=== PATIENT | male | born 1950 | race African-American/Black ===

== ENCOUNTER 2017-02-28 09:49 | Inpatient (IN) | payer OTHER ==
[~2017-02-28] VITALS: Ht 177.8 cm; Wt 94.1 kg
--- NOTE | ~2017-02-28 | HC ---
[facility] [place] [address] CONSULTATION Name: SASHA STEVENS Room #: 212-P [facility] IN M.R.#: [id number] Admission: 02/28/17 Attend Phys: Daniel Veliz DO Discharge: Date of : 48 Report #: [id number] THIS REPORT FOR: //name// CC: Daniel Veliz DO Gillian Torres MD DATE OF SERVICE: 03/01/2017 PATIENT OF: Dr. Gillian Torres and Dr. Daniel Veliz. INDICATION FOR CONSULTATION: The patient has had recurrent bouts of mid epigastric nonradiating pain associated with nausea and vomiting that are abrupt in onset and occur about every 6 months, this is his third episode. The pain, nausea, and vomiting have completely resolved now 24 hours since they started and that is the way the previous episodes have been as well. He has no residual tenderness, nausea, or vomiting. PAST MEDICAL HISTORY: Significant for diabetes mellitus, hypertension, hyperlipidemia, he has arthritis in his left hand, and he has had a history of gout. PAST SURGICAL HISTORY: Significant for repair of a dislocated patella on his right side and he had a surgical repair of a fractured left ankle. ALLERGIES: IBUPROFEN, which causes swelling. He also denies any other allergies. MEDICATIONS AT HOME: Included the following: Acetaminophen, atorvastatin, carvedilol, Remeron, Flomax, Ultram, trazodone, and he was taking 81 mg of aspirin, but had recurrent epistaxis episodes when he blew his nose every morning when he got up and so he stopped taking the aspirin because of that. SOCIAL HISTORY: He does smoke marijuana one a daily basis. He drinks occasional beer, but it does not sound like he drinks alcoholic extensively. He does not smoke cigarettes. He has never had a blood transfusion. FAMILY HISTORY: Significant for colon polyps in a sister, but there is no history of colon cancer, Crohn's disease, or ulcerative colitis in his family. REVIEW OF SYSTEMS: He denies any dysphagia, odynophagia, gastroesophageal reflux, hiatal hernia, or peptic ulcer disease. His weight is stable. His appetite is good. He denies any diarrhea or constipation. Denies any hematemesis, hematochezia, or melena. He has some lower abdominal pain sometimes that is resolved by the passage of stools and flatus. He has no [facility] [address] [place] [address] CONSULTATION Name: SASHA STEVENS Room #: 212-P [facility] IN ..#: [id number] Admission: 02/28/17 Attend Phys: Daniel Veliz DO Discharge: Date of : 48 Report #: [id number] history of jaundice, hepatitis, cholelithiasis, cholecystitis, or pancreatitis. He has regular colonoscopies every 5 years because of family history of colon polyps in his sister. His last colonoscopy was less than a year ago and it was normal. He has never had colon polyps. PHYSICAL EXAMINATION: GENERAL: Reveals a well-developed, well-nourished 66-year-old -[place] male, in no apparent distress at the time of the examination, he is awake, alert, oriented x4, and cooperative and very pleasant to converse with. HEENT: He is normocephalic and atraumatic and anicteric. HEART: Rate and rhythm are regular with a normal S1 and S2. He does have a grade 2/6 systolic murmur heard best in the left precordial area. LUNGS: Clear to auscultation bilaterally. ABDOMEN: Soft, nontender. Bowel sounds are present in all 4 quadrants. There is no palpable organomegaly or mass. There is no rebound or guarding. EXTREMITIES: Warm and dry. There is a healed scar in his left lateral ankle. There is no peripheral cyanosis, clubbing, or edema. NEUROLOGIC: He appears grossly intact without lateralizing signs, but I did not test him extensively neurologically. IMPRESSION: 1. Recurring bouts of mid epigastric pain, nonradiating with nausea and vomiting, did occur every 6 months, the etiology is uncertain, this pain has already resolved, it usually only lasts about 24 hours. His liver enzymes and lipase have remained normal. 2. Hypertension, poorly controlled. 3. Borderline diabetic. 4. Hyperlipidemia. 5. Arthritis, left hand. 6. History of gout. 7. Hypokalemia. Potassium was 2.9 and with is 3.4 now. RECOMMENDATION: My recommendations are as follows: 1. We will try to get an ultrasound of the abdomen today as this may be a gallbladder issue. 2. EGD will be performed later today to make certain that there is no evidence of gastritis or peptic ulcer disease. 3. The patient could probably go home today after the tests if they are all normal as his pain is resolved and if there are no other pending issues. We would continue PPIs for now. Consider a gastric emptying study as an outpatient. [facility] [address] [place] [address] CONSULTATION Name: SASHA STEVENS Room #: 212-P [facility] IN M.R.#: [id number] Admission: 02/28/17 Attend Phys: Daniel Veliz DO Discharge: Date of : 48 Report #: [id number] Thank you very much once again for allowing me to participate in his care, Dr. Veliz and Dr. Torres. <ELECTRONICALLY SIGNED> By: Dora Gan DO 03/01/17 1433 1023 1248 Dora Gan DO /nt
--- NOTE | ~2017-02-28 | HC ---
[facility] [place] [address] CONSULTATION Name: SASHA STEVENS Room #: 212-P [facility] IN ..#: [id number] Admission: 02/28/17 Attend Phys: Daniel Veliz DO Discharge: Date of : 48 Report #: [id number] THIS REPORT FOR: //name// CC: Daniel Torres DATE OF SERVICE: 02/28/2017 DATE OF SERVICE: 02/28/2017. REASON FOR CONSULTATION: Hypertension. HISTORY OF PRESENT ILLNESS: This is a very pleasant 66-year-old gentleman who presented to the emergency room with nausea and vomiting. He does have a history of hypertension and states that he had not taken his medications in the morning of admission. On questioning though, his blood pressures when actually taking his medicines are still 150-160 systolic. He states this morning he awoke and began nauseated. He did not check his blood pressure at that time, but has been unable to stop this protracted emesis. He denies any chest pain, pressure, tightness or heaviness. He did have a small-bowel obstruction in the past which was completely different than these symptoms. No dependent or nondependent edema. No palpitations. PAST MEDICAL HISTORY: 1. Hypertension. 2. Diabetes mellitus. 3. Prior bowel obstruction. ALLERGIES: IBUPROFEN. MEDICATIONS AT HOME: Flomax, Ultram, Tylenol, Zocor, Coreg 25 mg daily. PAST SURGICAL HISTORY: Significant for: 1. Ankle surgery. 2. Knee surgery. 3. Removal of a right inner thigh mass. SOCIAL HISTORY: The patient smokes marijuana twice a day and uses alcohol daily. Does not follow particular exercise regimen or follow any dietary restriction. DIAGNOSTIC AND LABORATORY DATA: ELECTROCARDIOGRAM: Normal sinus rhythm, nonspecific ST-T wave changes. LABORATORY: Laboratories demonstrate potassium of 3.5, BUN and creatinine of 9 and 0.9. H and H are 18.5 and 53.8, with a platelet count of 126,000. His drug screen is positive for THC. [address] [address] CONSULTATION Name: SASHA STEVENS Chapo Room #: [facility] IN ..#: [id number] Admission: 02/28/17 Attend Phys: Daniel Veliz DO Discharge: Date of : 48 Report #: [id number] RADIOLOGIC: Chest x-ray failed to demonstrate any acute cardiovascular issues. REVIEW OF SYSTEMS: Except for symptoms previously mentioned and those commensurate with comorbid states, the 10 point review of systems is negative. PHYSICAL EXAMINATION: GENERAL: Well-developed, well-nourished -[place] male resting comfortably in no acute distress. HEENT: Normocephalic, atraumatic. Pupils are equal, round, reactive to light and accommodation. Extraocular muscles are intact. Sclerae and conjunctivae are anicteric. NECK: JVD is normal. Carotid upstrokes are bilaterally symmetrical. No bruits are heard. No thyromegaly. No lymphadenopathy. LUNGS: Clear to auscultation. No wheezes, rhonchi or crackles. No CVA tenderness. CARDIAC: Demonstrates a regular rhythm. Normal first and second heart sounds. No ventricular or atrial gallops, no rubs noted. No murmurs. No lifts or heaves, PMI normal. ABDOMEN: Soft, nontender, nondistended. Normal bowel sounds. EXTREMITIES: Without cyanosis, clubbing or edema. Distal pulses are intact. DTR symmetrical. NEUROLOGIC: Cranial nerves 2-12 are grossly normal and symmetrical. PSYCHIATRIC: Alert, oriented with normal affect. SKIN: Warm and dry. IMPRESSION: 1. Hypertension, not well controlled. The patient's Coreg is only once a day, it is a twice-a-day drug, we need to increase it to b.i.d. We will continue to monitor his blood pressures carefully. We will see if we can get him to the target. I did discuss nonpharmacologic treatment of hypertension. He does voice understanding, but we will re-emphasize this on a daily basis. 2. Nausea and vomiting, uncertain etiology, doubt that it is ischemic in origin. We will defer to primary care. 3. Diabetes mellitus, seems to be monitored at home, but he is not on any medications for this. We need to can make sure that the diabetes is not affecting his nausea, vomiting, etc. We will defer that to primary care though. <ELECTRONICALLY SIGNED> By: Naveen Booth MD 03/01/17 2219 [id number] [id number] Naveen Booth MD /nt
--- NOTE | ~2017-02-28 | S ---
[facility] [place] [address] SURGICAL PATH RPT PROCEDURE Name: ASTON STEVENS Room #: 212-P [facility] IN M.R.#: [id number] Admission: 02/28/17 Date of : 48 Discharge: 03/03/17 Report #: [id number] Path Case #: [id number] PATHOLOGY REPORT COLLECTION DATE: 03/01/2017 RECEIVED DATE: 03/01/2017 SUBMITTING PHYS: Dr. Dora Gan OTHER PHYS: Dr. Gillian Veliz SPECIMEN(S) RECEIVED: A.Random gastric bx B.Bx of antral erosions * * * * * * * * * * * * FINAL DIAGNOSIS: A. "Random gastric BX", biopsy: - Gastric mucosa with mild reactive changes, mild chronic inflammation and focal intestinal type epithelium; no dysplasia seen (see comment). B. "BX of antral erosions", biopsy: - Gastric antral-type mucosa with mild reactive/regenerative changes, mild chronic inflammation and focal intestinal type epithelium; no dysplasia seen (see comment). COMMENT: Within both specimens A and B, the focal intestinal type epithelium may be focal intestinal metaplasia in the setting of mild chronic gastritis or a transition to small bowel/duodenal mucosa. No dysplasia is seen. Clinical and endoscopic correlation is required. Properly controlled immunohistochemical stains are performed. H. pylori (block A1) - Negative for organisms H. pylori (block B1) - Negative for organisms PATHOLOGIST: Manju Welch M.D. REPORT ELECTRONICALLY SIGNED BY: Manju Welch M.D. DATE/TIME: 03/05/2017 23:07 * * * * * * * * * * * * GROSS PATHOLOGY: A. Received in formalin labeled "A[place], random gastric BX," are 3 segments of aburto soft tissue measuring 1.9 x 0.2 x 0.2 cm in aggregate dimensions and ranging from 0.5 to 0.9 cm in maximum dimension. The specimen is submitted entirely in cassette A1. B. Received in formalin labeled "[place] Stevens, gastric antrum erosions BX," are 3 segments of aburto soft tissue measuring 1.6 x 0.[address] [address] SURGICAL PATH RPT PROCEDURE Name: ASTON STEVENS Room #: 212-P [facility] IN .R.#: [id number] Admission: 02/28/17 Date of : 48 Discharge: 03/03/17 Report #: [id number] Path Case #: [id number] 0.2 cm in aggregate dimensions and ranging from 0.3 to 0.6 cm in maximum dimension. The specimen is submitted entirely in cassette B1. (ROBI; 03/02/2017) CLINICAL HISTORY: Nausea/vomiting, epigastric pain INITIAL CPT CODE(S): A; 54660, 50449 B; 76422, 77942 Professional services performed by [facility] at [address], [place] [address] Technical services performed by [facility] at [address] [place] [address], [address], [place] [address]. [facility] [address] [place] [address] PHONE: [phone] DIRECTOR: Bassam Mora M.D. * * * END OF REPORT * * *
--- NOTE | ~2017-02-28 | EKG ---
[address] [place] [place] [address] ELECTROCARDIOGRAM REPORT Name: SASHA STEVENS Room #: 212-P [facility] IN M.R.#: [id number] Admission: 02/28/17 Attend Phys: Daniel Veliz DO Discharge: Date of : 48 Report #: [id number] THIS REPORT FOR: //name// [facility] ED Test Date: 2017-02-28 Test Time: 10:18:11 Pat Name: SASHA STEVENS Department: Room: [facility] Gender: M [employer] Manager: MZOOK : 1950 Requested By: Katie Cochran Order Number: [id number] MD: Ghanshyam Kellogg Measurements Intervals [place] Rate: 45 P: 27 MS: 191 QRS: 10 QRSD: 97 T: 21 QT: 469 QTc: 406 Interpretive Statements Sinus bradycardia Probable left ventricular hypertrophy Compared to ECG 09/01/2015 14:35:03 No significant change was found Electronically Signed On 03-01-2017 7:14:31 CDT by Ghanshyam Kellogg [email or web address] <ELECTRONICALLY SIGNED> By: Ghanshyam Kellogg MD, [facility] 03/01/17 0714 1018 1018 Ghanshyam Kellogg MD, [facility] /EPI
--- NOTE | ~2017-02-28 | P ---
[facility] [place] [address] PROCEDURE REPORT Name: SASHA STEVENS Room #: 212-P ADM IN M.R.#: [id number] Admission: 02/28/17 Attend Phys: Daniel Veliz DO Discharge: Date of : 48 Report #: [id number] THIS REPORT FOR: //name// CC: ANNMARIE Link DATE OF SERVICE: 03/01/[address] Daniel Veliz and Dr. Annmarie Torres PROCEDURE: EGD with biopsies. INDICATION FOR PROCEDURE: This patient has had 3 bouts of severe epigastric pain, nausea and vomiting, spread out over about a year and a half to 2 years. It is abrupt in onset and the etiology is never clear. Once again yesterday he had one of these episodes. Today all the symptoms have resolved completely. He is nontender to palpation. EGD is being performed to see if there are any changes in his stomach that might tell us what is causing these episodes. Informed consent for this procedure was obtained prior to the administration of any medication. The risks of the procedure which include bleeding, perforation, infection, complications of sedation and the possibility I could miss something have been explained to the patient and he has indicated his consent by signing. The [email or web address] upper videoscope was introduced through the upper esophageal sphincter and advanced under direct visualization to the descending duodenum. Findings are noted on withdrawal of the scope. The duodenal mucosa appears normal throughout its entirety. Pylorus, normal mucosa. Antrum; in the antrum, there are several erosions that are linear both in parallel to long axis of the stomach and perpendicular to the long axis of the stomach. These are all located pretty much in the antrum. Multiple biopsies were obtained from these erosions to evaluate them further. The overall antrum is also erythematous. Body, erythematous mucosa and is also nodular. Cardia and fundus, erythematous mucosa and slightly nodular. Multiple biopsies were obtained randomly throughout the stomach to evaluate its odd appearance. Good hemostasis was noted after all biopsies. Retroflex view did not reveal any hiatal hernia. The scope was withdrawn to the esophagus. The Z-line is appropriately located at the top the gastric folds and appears normal. The esophageal mucosa appears normal throughout its entirety. The scope was withdrawn. The patient went to the recovery area in stable condition. He tolerated the procedure well. IMPRESSION: Diffuse erosive gastritis primarily in the antrum, but also nodular gastritis of the proximal stomach, multiple biopsies are pending. [address] [address] PROCEDURE REPORT Name: SASHA STEVENS Room #: 212-P [facility] IN ..#: [id number] Admission: 02/28/17 Attend Phys: Daniel Veliz DO Discharge: Date of : 48 Report #: [id number] RECOMMENDATIONS: To await the biopsy results and switch him to proton pump inhibitors. We will start him on a clear liquid diet to advanced as tolerated and will await the abdominal ultrasound to make sure his gallbladder is not playing a part of this pain scenario. Thank you very much once again for allowing me to participate in his care, Dr. Veliz and Dr. Torres. <ELECTRONICALLY SIGNED> By: Dora Gan DO 03/01/172044 1222 25 Dora Gan DO /nt
[~2017-02-28 09:49] MED LIST: AVANDAMET 2 MG1 EAC1 PO; BYETTA PEN 11 PENINJ SC; CARVEDILOL25 MG PO; CIPROFLOXACIN500 M1 PO; DIOVAN320 MG PO; FLAGYL500 MG PO; FLOMAX0.4 MG PO; LISINOPRIL; LORTAB 5 MG/5001 TA1 PO; PHENERGAN 25 MG25 M1 PO; PREDNISONE 20 M20 MG PO; SIMVASTATIN40 MG PO; TRAMADOL 50 MG50 MG PO; TYLENOL325 MG PO; ULORIC80 MG PO
[2017-02-28 09:52] VITALS: BP 147/116
[2017-02-28 10:19] LABS: ABSOLUTE NEUTROPHILS 7.7 thou/uL (1.4-8.2); BASOPHILS 0.3 % (0.0-2.0); EOSINOPHILS 0.3 % (0.0-3.0); HEMATOCRIT 53.8 % (42.0-52.0); HEMOGLOBIN 18.5 gm/dL (14.0-18.0); LYMPHOCYTES 13.3 % (24.0-44.0); MCH 32.1 pg (26.0-34.0); MCHC 34.3 g/dL (28.0-37.0); MCV 93.4 fL (80.0-100.0); MONOCYTES 4.1 % (1.0-8.0); PLATELET COUNT 146 thou/uL (150-400); RBC 5.76 mil/uL (4.50-6.00); RDW 14.1 % (10.5-14.5); WBC 9.4 thou/uL (4.0-11.0)
[2017-02-28 10:25] LABS: MANUAL DIFF NO
[2017-02-28 10:28] LABS: ANION GAP 11 mmol/L (7-16); BUN 9 mg/dL (7-18); CALCIUM 9.6 mg/dL (8.5-10.1); CHLORIDE 106 mmol/L (98-107); CO2 28 mmol/L (21-32); CREATININE 0.9 mg/dL (0.7-1.3); GLUCOSE 168 mg/dL (74-106); POTASSIUM 3.5 mmol/L (3.5-5.1); SODIUM 145 mmol/L (136-145)
[2017-02-28 10:40] LABS: ALBUMIN 4.4 g/dL (3.4-5.0); ALKALINE PHOSPHATASE 94 U/L (46-116); SGOT 22 U/L (15-37); SGPT 30 U/L (30-65); TOTAL BILIRUBIN 0.8 mg/dL (<0.1-1.0); TOTAL PROTEIN 8.9 g/dL (6.4-8.2); TROPONIN-I < 0.04 ng/mL (<0.04-0.07)
[2017-02-28 11:51] LABS: URINE BILIRUBIN NEGATIVE (Negative); URINE BLOOD 1+ (Negative); URINE COLOR YELLOW; URINE GLUCOSE-RANDOM* NEGATIVE (Negative); URINE KETONES 1+ (Negative); URINE NITRITE NEGATIVE (Negative); URINE PROTEIN (DIPSTICK) 1+ (Negative); URINE SPECIFIC GRAVITY 1.015 (1.003-1.035); URINE UROBILINOGEN 0.2 E.U./dl (0.2-1.0)
[2017-02-28 12:04] LABS: CASTS None Seen /LPF (None Seen); SQUAMOUS 0-3 Few /LPF (0-3)
[2017-02-28 12:05] LABS: BACTERIA None Seen /HPF (None Seen); CRYSTALS None Seen /LPF (None Seen); URINE RBC 0-2 Rare /HPF (0-2); URINE WBC None Seen /HPF (0-5)
[2017-02-28 13:52] LABS: AMP/METHAMP Negative (Negative); BARBITURATES Negative (Negative); BENZODIAZEPINES Negative (Negative); COCAINE Negative (Negative); METHADONE Negative (Negative); OPIATES Negative (Negative); PCP Negative (Negative); THC POSITIVE (Negative)
[2017-02-28 16:08] VITALS: BP 180/87
[2017-02-28] MEDS ORDERED: REMERON15 MG PO (16:10)
[2017-02-28] MEDS ORDERED: TRAZODONE HCL50 MG PO (16:11)
[2017-02-28] MEDS ORDERED: ATORVASTATIN CA40 MG PO (16:11)
[2017-02-28 20:05] VITALS: BP 134/65
[2017-02-28 23:51] VITALS: BP 119/72
[2017-03-01 02:59] LABS: HEMATOCRIT 43.1 % (42.0-52.0); MCH 31.5 pg (26.0-34.0); MCHC 34.5 g/dL (28.0-37.0); MCV 91.1 fL (80.0-100.0); PLATELET COUNT 115 thou/uL (150-400); RBC 4.74 mil/uL (4.50-6.00); RDW 13.8 % (10.5-14.5)
[2017-03-01 03:07] LABS: CALCIUM 8.1 mg/dL (8.5-10.1); CREATININE 1.3 mg/dL (0.7-1.3)
[2017-03-01 03:34] LABS: POTASSIUM 2.9 mmol/L (3.5-5.1)
[2017-03-01 03:36] LABS: HEMOGLOBIN 14.9 gm/dL (14.0-18.0); MANUAL DIFF YES
[2017-03-01 04:28] VITALS: BP 141/67
[2017-03-01 05:35] LABS: ABSOLUTE NEUTROPHILS 5.6 thou/uL (1.4-8.2); TOTAL CELL COUNT 100
[2017-03-01 08:50] VITALS: BP 176/83
[2017-03-01 17:48] VITALS: BP 178/86
[2017-03-01 21:09] VITALS: BP 181/98
[2017-03-02 00:05] VITALS: BP 161/68
[2017-03-02 03:38] VITALS: BP 179/78
[2017-03-02 07:05] VITALS: BP 181/98
[2017-03-02 12:29] VITALS: BP 176/109
[2017-03-02 20:28] VITALS: BP 187/102
[2017-03-03 00:18] VITALS: BP 162/100
[2017-03-03 05:30] VITALS: BP 186/105
[2017-03-03 07:56] VITALS: BP 156/90
[2017-03-03] MEDS ORDERED: ALTACE10 MG PO (11:36)
[2017-03-03 12:03] VITALS: BP 156/90
[2017-03-03 12:04] VITALS: BP 156/90
== END 2017-03-03 12:30 | disposition home or self-care (01) | DRG 392 ==
LOC: ER 09:49 → EROBS 13:35 → 2N 13:35
PROVIDERS: Family Medicine; Physician Assistant
PROC: 0DB68ZX Excision of Stomach, Via Natural or Artificial Opening Endoscopic, Diagnostic (ICD-10-PCS; principal; 2017-03-01)
DX: K29.00 Acute gastritis without bleeding (principal); N17.9 Acute kidney failure, unspecified; I16.0 Hypertensive urgency; I10 Essential (primary) hypertension; E11.9 Type 2 diabetes mellitus without complications; F12.90 Cannabis use, unspecified, uncomplicated; M10.9 Gout, unspecified; E78.5 Hyperlipidemia, unspecified; E87.6 Hypokalemia; M19.042 Primary osteoarthritis, left hand; Z88.6 Allergy status to analgesic agent; Z72.89 Other problems related to lifestyle; Z83.71 Family history of colonic polyps
CPT/HCPCS: 10081; 62110; 62900; 70005